=== PATIENT | female | born 1970 | race Caucasian/White ===

== ENCOUNTER 2019-10-05 13:16 | Emergency (ER) | payer BC ==
[~2019-10-05] VITALS: Ht 160 cm; Wt 87.1 kg
[2019-10-05 13:28] VITALS: Ht 160 cm; Wt 87.1 kg
[2019-10-05 14:36] LABS: BASOPHIL % 0.2 % (0-2); PLATELET COUNT 337 x10^3mcL (130-400); RED CELL DISTRIBUTION WIDTH 12.8 % (11.5-14.5)
[2019-10-05 14:53] LABS: CALCIUM 8.8 mg/dL (8.5-10.1); CHLORIDE SERUM 99 mmol/L (98-107); CREATININE SERUM 0.9 mg/dL (0.6-1.0); GFR1 > 60 mL/min; GLUCOSE SERUM 116 mg/dL (74-106); POTASSIUM SERUM 4.5 mmol/L (3.5-5.1); SODIUM SERUM 133 mmol/L (136-145)
[2019-10-05 14:57] LABS: ALBUMIN 3.6 g/dL (3.4-5.0); ALKALINE PHOSPHATASE 65 U/L (46-116); ALT/SGPT 29 U/L (14-59); AMYLASE 57 U/L (25-115); AST/SGOT 18 U/L (15-37); BILIRUBIN TOTAL 0.3 mg/dL (0.20-1.00); LIPASE 97 IU/L (73-393); TOTAL PROTEIN, SERUM 7.4 g/dL (6.4-8.2)
[2019-10-05 16:00] VITALS: BP 109/62
== END 2019-10-05 17:20 | disposition home or self-care (01) ==
LOC: ED 13:16
PROVIDERS: Emergency Medicine
DX: K80.20 Calculus of gallbladder without cholecystitis without obstruction (principal); R16.0 Hepatomegaly, not elsewhere classified; Z88.0 Allergy status to penicillin
CPT/HCPCS: C9113; J2270; J2405; J7030

== ENCOUNTER 2020-06-15 10:54 | Emergency (ER) | payer BC ==
[~2020-06-15] VITALS: Ht 160 cm; Wt 81.6 kg
[2020-06-15 10:56] VITALS: Ht 160 cm; Wt 81.6 kg
[2020-06-15 12:03] LABS: microscopic required? NO
[2020-06-15 13:15] LABS: urine erythrocyte NEGATIVE (NEGATIVE)
[2020-06-15 13:44] VITALS: BP 110/68
== END 2020-06-15 13:30 | disposition home or self-care (01) ==
LOC: ED 10:54
PROVIDERS: Specialist
DX: M54.6 Pain in thoracic spine (principal); R30.0 Dysuria; R51.9 Headache, unspecified; Z88.0 Allergy status to penicillin
CPT/HCPCS: J0696; J1885